=== PATIENT | female | born 1990 | race Caucasian/White ===

== ENCOUNTER 2016-05-28 09:56 | Emergency (ER) | payer BC ==
[~2016-05-28] VITALS: Ht 154.9 cm; Wt 59.1 kg
[~2016-05-28 09:56] MED LIST: AMOXICILLIN 50500 MG PO; BENTYL 20MG TAB20 MG PO; FLAGYL500 MG PO; IBU600 MG PO; NO HOME MEDICATIONS; PERCOCET 325 MG1 TA2 PO
[2016-05-28 09:58] VITALS: BP 111/76; TEMP 97.9
[2016-05-28 10:59] LABS: PH 5 (5-8); URINE APPEARANCE Hazy; URINE BACTERIA Rare /hpf; URINE BILIRUBIN Negative (NEGATIVE); URINE BLOOD 3+ (NEGATIVE); URINE COLOR Yellow; URINE GLUCOSE Negative (NEGATIVE); URINE KETONE Negative (NEGATIVE); URINE RBC >50 /hpf; URINE UROBILINOGEN Negative (NEGATIVE)
[2016-05-28] MEDS ORDERED: DIFLUCAN150 MG PO (11:59)
[2016-05-28 12:04] VITALS: PULSE 63
== END 2016-05-28 12:04 | disposition home or self-care (01) ==
LOC: COL.ER 09:56
PROVIDERS: Physician Assistant
DX: R30.0 Dysuria (principal); R31.9 Hematuria, unspecified

== ENCOUNTER 2017-03-17 18:27 | Outpatient (CLI) | payer BC ==
[~2017-03-17] VITALS: Ht 154.9 cm; Wt 65.5 kg
[2017-03-17 18:25] VITALS: BP 118/62; PULSE 90; TEMP 97.8
[~2017-03-17 18:27] MED LIST changes: +DIFLUCAN150 MG PO
[2017-03-17 18:34] VITALS: BP 118/62; PULSE 90; TEMP 97.8
[2017-03-17] MEDS ORDERED: ZOLOFT 25MG25 MG PO (18:40)
[2017-03-17] MEDS ORDERED: PRENATAL1 TA7 PO (18:41)
[2017-03-17] MEDS ORDERED: SLOW FE142 MG PO (18:41)
[2017-03-17 19:25] VITALS: BP 111/70; PULSE 75
== END 2017-03-17 19:35 | disposition home or self-care (01) ==
LOC: LDRO 18:27
DX: O62.9 Abnormality of forces of labor, unspecified (principal); Z3A.35 35 weeks gestation of pregnancy

== ENCOUNTER 2017-04-13 15:33 | Outpatient (CLI) | payer BC ==
[~2017-04-13] VITALS: Ht 154.9 cm; Wt 67.3 kg
[~2017-04-13 15:33] MED LIST changes: +PRENATAL1 TA7 PO; +SLOW FE142 MG PO; +ZOLOFT 25MG25 MG PO
[2017-04-13 15:38] VITALS: BP 117/74; PULSE 89; TEMP 98.1
== END 2017-04-13 16:40 | disposition home or self-care (01) ==
LOC: LDR 15:33 → LDRO 15:33
DX: Z34.83 Encounter for supervision of other normal pregnancy, third trimester (principal); Z3A.39 39 weeks gestation of pregnancy
CPT/HCPCS: OP

== ENCOUNTER 2017-04-15 14:49 | Inpatient (IN) | payer BC ==
[2017-04-15] VITALS (34 sets, daily range): BP systolic 100–129; BP diastolic 51–85; PULSE 71–789; TEMP 98–98.5
[~2017-04-15] VITALS: Ht 154.9 cm; Wt 67.3 kg
[2017-04-15 15:42] LABS: BASO % 0.4 % (0.0-2.0); EOS # 0.1 (0.0-0.7); EOS % 0.7 % (0-4.0); GRAN # 8.4 (1.4-6.5); GRAN % 76.1 % (42.2-75.2); HEMATOCRIT 37.3 % (37.0-47.0); HEMOGLOBIN 12.5 g/dl (12.5-16.0); LYMPH # 1.8 (1.2-3.4); LYMPH % 16.3 % (20.0-51.0); MEAN CELL VOLUME 93 fl (80.0-100.0); MEAN CORPUSCULAR HEMOGLOBIN 31 pg (27.0-31.0); MEAN CORPUSCULAR HGB CONC 34 g/dl (33.0-37.0); MEAN PLATELET VOLUME 10.1 fl (7.4-10.4); MONO # 0.6 (0.1-0.6); MONO % 5.6 % (1.7-9.3); PLATELET COUNT 210 K/mm3 (130-400); RED BLOOD COUNT 4.01 M/mm3 (4.10-5.30)
[2017-04-16] VITALS (8 sets, daily range): BP systolic 99–117; BP diastolic 57–75; PULSE 63–81; TEMP 97.3–98.2
[2017-04-16] MEDS ORDERED: PERCOCET 325 MG1 TA2 PO (10:07)
[2017-04-16] MEDS ORDERED: MOTRIN 600600 MG/TAB PO (10:07)
[2017-04-17 07:15] VITALS: BP 114/73; PULSE 80; TEMP 97.9
== END 2017-04-17 11:00 | disposition home or self-care (01) | DRG 775 ==
LOC: LDRO 14:49 → LDR 15:25 → OB 15:25
PROVIDERS: Obstetrics & Gynecology
PROC: 10E0XZZ Delivery of Products of Conception, External Approach (ICD-10-PCS; principal; 2017-04-15)
PROC: 0KQM0ZZ Repair Perineum Muscle, Open Approach (ICD-10-PCS; 2017-04-15)
DX: O70.1 Second degree perineal laceration during delivery (principal); Z3A.39 39 weeks gestation of pregnancy; Z37.0 Single live birth
CPT/HCPCS: J2590; J7120

== ENCOUNTER 2017-04-21 03:32 | Emergency (ER) | payer BC ==
[~2017-04-21] VITALS: Ht 154.9 cm; Wt 59.1 kg
[~2017-04-21 03:32] MED LIST changes: +MOTRIN 600600 MG/TAB PO
[2017-04-21 03:35] VITALS: TEMP 97.9
[2017-04-21] MEDS ORDERED: MIRALAX 255 GM255 GM PO (04:44)
[2017-04-21 04:52] VITALS: BP 131/67; PULSE 79
== END 2017-04-21 04:54 | disposition home or self-care (01) ==
LOC: COL.ER 03:32
DX: O90.89 Other complications of the puerperium, not elsewhere classified (principal); K59.03 Drug induced constipation; T40.2X5A Adverse effect of other opioids, initial encounter

== ENCOUNTER 2019-12-29 18:11 | Outpatient (CLI) | payer BC ==
[~2019-12-29] VITALS: Ht 154.9 cm; Wt 68.2 kg
[~2019-12-29 18:11] MED LIST changes: +MIRALAX 255 GM255 GM PO
--- NOTE | 2019-12-29 18:15 | NUR ---
1814- PT PRESENTS TO LDR COMPLAINING OF CONTRACTIONS AND POSSIBLE LEAKING, AMBULATORY TO ROOM LR5, CHANGED INTO GOWN. 1824- EFM X2 APPLIED. PT STATES SHE HAS BEEN ALFONSO SINCE 1729, AND DOESN'T KNOW IF SHE HAS BEEN LEAKING FLUID. STATES SHE HAS NO VAGINAL BLEEDING AND IS FEELING THE BABY MOVE. PLAN FOR LABOR CHECK DISCUSSED AND QUESTIONS ANSWERED. 1829- AMNITRACE IS NEGATIVE FOR ROM, SVE BY THIS NURSE WITH POSTERIOR CERVIX AND NO POOLING OF FLUID OR BLOODY SHOW NOTED. 1834- NURSING HISTORY AND ADMISSION ASSESSMENTS COMPLETED. PT PROVIDED WITH ORAL HYDRATION. CALL LIGHT WITHIN REACH. 1929- PT REPORTS THAT HER CONTRACTIONS SEEM TO HAVE SPACED OUT BUT SOME OF THEM HAVE STILL BEEN UNCOMFORTABLE. CERVICAL EXAM BY THIS NURSE UNCHANGED AT THIS TIME. DISCUSSED PLAN OF CARE FOR POSSIBLE DISMISSAL TO HOME AND EARLY LABOR. PT QUESTIONS ANSWERED. 1933- PT OFF MONITORS. 1935- DR CRANDALL CALLED AND UPDATED ON PT HISTORY, COMPLAINT, SVE, STRIP INTERPRETATION, AND COMFORT. ORDER FOR DISMISSAL TO HOME RECEIVED. 1951- DISMISSAL INSTRUCTIONS GIVEN AND PT VERBALIZES UNDERSTANDING. PT DISMISSED TO HOME AMBULATORY ACCOMPANIED BY SPOUSE.
[2019-12-29] MEDS ORDERED: PRENATAL VITAMI1 TA3 PO (18:38)
[2019-12-29] MEDS ORDERED: NATURAL IRON65 MG (18:39)
[2019-12-29] MEDS ORDERED: ZOLOFT 100MG100 MG PO (18:39)
[2019-12-29] MEDS ORDERED: SENOKOT8.6 MG PO (18:40)
[2019-12-29 19:00] VITALS: BP 127/66; PULSE 75; TEMP 98
== END 2019-12-29 19:52 | disposition home or self-care (01) ==
LOC: LDRO 18:11
DX: O62.9 Abnormality of forces of labor, unspecified (principal); Z3A.37 37 weeks gestation of pregnancy

== ENCOUNTER 2019-12-30 22:09 | Inpatient (IN) | payer BC ==
[~2019-12-30] VITALS: Ht 157.5 cm; Wt 68.2 kg
[~2019-12-30 22:09] MED LIST changes: +NATURAL IRON65 MG; +PRENATAL VITAMI1 TA3 PO; +SENOKOT8.6 MG PO; +ZOLOFT 100MG100 MG PO
--- NOTE | 2019-12-30 22:15 | NUR ---
2214- Pt. wheeled to the floor with by her side. Orientated to room and changed into gown. Reports GFM, SROM around 2114, contractions every 2-5 minutes and denies blood. 2220- EFM and TOCO on and tracing. RN remains at bedside. Vitals taken, SVE 4-5/80/-2 and positive amniotrace noted. Called aviation ordnance officer doctor Addis, and notified her and got orders for admit. Consents signed, vitals taken, IV started and fluids running.
[2019-12-30 22:30] VITALS: BP 129/61; PULSE 78; TEMP 98.1
[2019-12-30 23:08] LABS: BASO % 0.4 % (0.0-2.0); EOS # 0.1 (0.0-0.7); EOS % 1.2 % (0-4.0); GRAN # 7.6 (1.4-6.5); GRAN % 72.1 % (42.2-75.2); HEMATOCRIT 34.9 % (37.0-47.0); HEMOGLOBIN 11.6 g/dl (12.5-16.0); LYMPH # 1.9 (1.2-3.4); LYMPH % 18.1 % (20.0-51.0); MEAN CELL VOLUME 91 fl (80.0-100.0); MEAN CORPUSCULAR HEMOGLOBIN 30 pg (27.0-31.0); MEAN CORPUSCULAR HGB CONC 33 g/dl (33.0-37.0); MEAN PLATELET VOLUME 10.3 fl (7.4-10.4); MONO # 0.8 (0.1-0.6); MONO % 7.2 % (1.7-9.3); PLATELET COUNT 184 K/mm3 (130-400); RED BLOOD COUNT 3.84 M/mm3 (4.10-5.30); REDCELL DISTRIBUTION WIDTH-CV 13.5 % (11.5-14.5)
[2019-12-30 23:30] VITALS: BP 123/74; PULSE 86
[2019-12-30 23:45] VITALS: BP 122/74; PULSE 85
[2019-12-31] VITALS (28 sets, daily range): BP systolic 92–130; BP diastolic 53–91; PULSE 58–117; TEMP 97.6–98.3
--- NOTE | 2019-12-31 02:00 | NUR ---
0133- Dr. Mancini and RN to bedside to do SVE. SVE, complete with an anterior lip per the provider. Did practice push, not adequate. RN remains at bedside. 0140- Dr. Mancini to bedside again and advised to start pushing. Pushing begins. RN remains at bedside. EFM tracing intermittently due to maternal pushing. 0145- FHT down to 80s and 90s and not returning to baseline. 0147- Vacuumn placed by provider and pt. pushing with vacuumn. 0150- Provider ordered 02 on and pitocin off. Verbal orders completed. FHT noted to still be down. Attempted to place pt. RL. and then LL when no reponse from heart tones. 0155- Bed put back together and FHT responded to ss. 0159- FHT noted to be returning to baseline and pt. was placed in LL position with the peanut ball. FHT up and pt. begining to feel better. Provider advised to stop all pushing and let patient and fetus recover.
--- NOTE | 2019-12-31 03:55 | NUR ---
0254- Mancini and RN to bedside to check position of fetus and do trial push. Provider would like to do some practice pushes. 0300- Pt. pushing with provider and RN at bedside. RN remains at bedside as provider comes in and out during contractions and pushes. EFM tracing intermittently due to maternal pushing. 0330- Nursery nurse notified to be ready for delivery. Pt and room set up for delivery. 0341- of viable male infant. Infant placed to mothers abdomen and nursery nurse assumes care at this time. 0344- of placenta. Fundus massaged to firm by provider. Pitocin started at 333ml/hr per protocol. 2nd degree tear noted and repairs begin. 0355- EBL noted to be 300 by provider. Pt and room put back together and cleaned up. Ice pack and pad to perineum. Vitals stable, fundus firm with moderate amount of blood noted with some small clots. Recovery started. Epidural turned off.
[2020-01-01 00:43] VITALS: BP 136/75; PULSE 66; TEMP 97.8
[2020-01-01 07:09] VITALS: BP 127/87; PULSE 67; TEMP 97.9
[2020-01-01] MEDS ORDERED: IBU800 M1 PO (08:25)
[2020-01-01] MEDS ORDERED: PERCOCET 325 MG1 TA2 PO (08:25)
--- NOTE | 2020-01-01 10:18 | NUR ---
Initial visit; Parents thanked for offering congratulations for the of their son. thanked family for choosing [facility].
== END 2020-01-01 11:30 | disposition home or self-care (01) | DRG 807 ==
LOC: LDRO 22:09 → OB 22:38 → LDR 22:38 → OB 12-31 09:15
PROVIDERS: ADMIT Obstetrics & Gynecology
PROC: 10E0XZZ Delivery of Products of Conception, External Approach (ICD-10-PCS; principal; 2019-12-31)
PROC: 0KQM0ZZ Repair Perineum Muscle, Open Approach (ICD-10-PCS; 2019-12-31)
DX: O99.344 Other mental disorders complicating childbirth (principal); Z37.0 Single live birth; O99.02 Anemia complicating childbirth; Z3A.38 38 weeks gestation of pregnancy; D64.9 Anemia, unspecified; O70.1 Second degree perineal laceration during delivery; F32.9 Major depressive disorder, single episode, unspecified
CPT/HCPCS: J2590; J2795; J7120